=== PATIENT | female | born 1955 | race Caucasian/White ===

== ENCOUNTER 2025-02-18 09:10 | Observation (INO) | payer MEDICARE ==
--- NOTE | 2025-02-05 16:09 | ELECTROCARDIOGRAPH REPORT ---
[facility] Test Date: 2025-02-05 Test Time: 16:07:26 Pat Name: CARLEEN MAYO Department: PRE/OP CARDIOLOGY Room: Gender: F Head Pumper: HENRI : 1955 Requested By: EFRAIN GREENWOOD Order Number: [id number] Reading MD: Dr. Yazmin Joseph Measurements Intervals [place] Rate: 68 P: 38 LA: 140 QRS: 8 QRSD: 99 T: 50 QT: 435 QTc: 463 Interpretive Statements Sinus rhythm Abnormal R-wave progression, early transition Electronically Signed On 02-10-2025 7:00:[address] Yazmin Joseph Please click the below link to view image of tracing.
[2025-02-05 16:33] LABS: MEAN PLATELET VOLUME 8.5 FL (7.4-10.4); PRE OP HEMATOCRIT 40.0 % (35.0-45.0); PRE OP HEMOGLOBIN 13.7 g/dL (12.0-16.0); PRE OP PLATELET COUNT 226 X10'3 (140-440); PRE OP WHITE BLOOD COUNT 5.2 10'3 (4.8-10.8); RED CELL DISTRIBUTION WIDTH 14.1 % (11.5-14.5)
[2025-02-05 16:44] LABS: CREATININE 0.69 MG/DL (0.40-0.90); PRE OP ALT 33 U/L (30-65); PRE OP ANION GAP 6 (8-16); PRE OP AST 27 U/L (10-37); PRE OP BILIRUB, TOTAL 0.6 MG/DL (0.0-1.0); PRE OP GLUCOSE 100 MG/DL (70-104); PRE OP POTASSIUM 4.2 MMOL/L (3.4-5.1); PRE OP SODIUM 139 MMOL/L (135-145); TOTAL CARBON DIOXIDE 28.7 MMOL/L (24-32); eGFR 84 ML/MIN
[2025-02-18] VITALS (36 sets, daily range): BP systolic 95–175; BP diastolic 38–85; PULSE 53–77; RESP 11–19; TEMP 98–98.5; O2SAT 92–99
[~2025-02-18] VITALS: Ht 167.6 cm; Wt 101.9 kg
[2025-02-18] MEDS: ceFAZolin 2gm/dext,iso 50mL 50 ML IV ONE (05:30)
[2025-02-18] MEDS: DOCUMENT DATE & TIME OF BETA-BLOCKER PO ONE (05:30)
[~2025-02-18 09:10] MED LIST: ACET-1025 PO; CALC-1215 PO; CELE-148 PO; MAGN125C PO; METO-384 PO; OMEP20CA16 PO; POTA99CA PO; VALS320T17 PO
[2025-02-18] MEDS: ringers solution, lacted 1,000 ML IV SCH ×2 (09:46→12:15)
[2025-02-18] MEDS: VANCOMYCIN/H2O 1.5g/300mL PB 300 ML IV ONE (09:47)
[2025-02-18] MEDS ORDERED: fentaNYL/PF 50MCG/1 ML 2ML syringe ONE (10:47)
[2025-02-18] MEDS ORDERED: MIDAZolam 1 MG/ML 5ML VIAL ONE (10:47)
[2025-02-18] MEDS ORDERED: propofol inj 20 ML IV ONE ×2 (10:49)
[2025-02-18] MEDS: BUPIVACAINE/MELOXICAM 14 ML VIAL IL ONE (11:58)
[2025-02-18] MEDS ORDERED: hydrALAZINE 20mg/ml inj. IV PRN (12:15)
[2025-02-18] MEDS ORDERED: ondansetron/PF 4mg/2ml inj IV PRN ×2 (12:15→16:10)
[2025-02-18] MEDS ORDERED: labetalol 20mg/4ml (5mg/ml) syringe IV PRN (12:15)
[2025-02-18] MEDS ORDERED: fentaNYL/PF 50MCG/1 ML 2ML syringe IV PRN ×2 (12:15)
[2025-02-18] MEDS ORDERED: ROPIVAcaine 0.5% (5mg/ml) 30ml vial ONE (13:24)
[2025-02-18] MEDS ORDERED: acetaminophen 325mg rectal suppository RC PRN (13:25)
--- NOTE | 2025-02-18 13:52 | OPERATIVE REPORT ---
Operative Report Operative Report OPERATIVE REPORT [facility] [address] [place] [address] Date of service: February 18, 2025 PREOPERATIVE DIAGNOSIS M17..16 Primary osteoarthritis of right knee POSTOPERATIVE DIAGNOSIS M17..16 Primary osteoarthritis of right knee Operation Performed 31127 Total Knee Arthroplasty [place]: [place] 8[address] Computer Assisted Navigation Musculoskeletal - Imageless 87833 Remote therapeutic monitoring; device supply with scheduled recordings every 30 days. Procedure: Computer-assisted, robotically-assisted, right total knee ar throplasty. Surgeon: Dr. Eusebio Craig Antisubmarine Weapons Officer: Chantell Reynoso PA-C Anesthesiologist: Dr. Kendrick Anesthesia: General anesthetic Indications: 69-year-old female who has chronic osteoarthritis of the right knee with severe pain and limitation of activities despite extensive non- operative management. This patient has had extensive conservative treatment of knee joint arthritis, including rest, external joint support, anti-inflammatory medications, physical therapy, and corticosteroid injection. Physical therapy has been provided, along with a home exercise program prior to making the decision to proceed with surgical treatment. This therapeutic intervention did not provide any substantial relief of symptoms or improvement in function. The patient has been utilizing a cane, set of crutches, or walker, for more than 3 months prior to deciding to proceed with surgery. These interventions have not provided sufficient relief of pain to allow improvement in function. The patient has utilized non-steroidal anti-inflammatory medications for relief of pain over an extended period of time (more than 2 months), and has not experienced sufficient improvement in symptoms. Despite these treatments, this patient has continued difficulties with pain and limited function. They are unable to walk long distances, do vigorous activities, sit or sleep comfortably. Total knee replacement is the next reasonable step in terms of treatment. Indications for family readiness support assistant surgeon: A second set of skilled hands with specific orthopedic knowledge of the surgical procedure and orthopedic surgical techniques was necessary to accomplish this operation successfully, and with the least amount of morbidity for the patient. This facilitated operative exposure, manipulation and handling of tissues, placement of any implants, and accomplishment of wound closure. Findings: There was indeed a very severely arthritic knee, with loss of cartilage, exposed bone, and marginal osteophytes. The medial compartment was particularly bad. A 1 degree varus deformity and and an 11 degree flexion contracture were measured preoperatively. Post operative alignment was 1 degree varus, and 1 degree extension. Complications: None Estimated Blood Loss: 150 mL Implants: A Perla Persona CR total knee system was utilized with a size nine right femoral component, a size D right tibial component with a smart stem, and a 32 mm patellar component. A 10 mm medial congruent right tibial insert was utilized. The Viajala robotically assisted total knee arthroplasty system and computer was utilized. Procedure: The risks, benefits, expected results, and possible complications of the planned procedure had been explained to the patient and informed consent obtained. The patient was taken to the operating room and underwent a spinal anesthetic and regional blocks. The patient was placed in the supine position on the operating table, and the right leg was prepped and draped in the usual fashion. A timeout was taken prior to surgery, confirming patient identifica tion, operative side operative site, planned procedure, administration of pre- operative antibiotics, site marking, and presence of all necessary implants and instruments, x-rays and equipment. A standard anterior, slightly lateral approach was performed with a medial parapatellar arthrotomy, and a VMO split. Time was then spent removing excessive synovial tissue and exposing the medial and lateral gutters, as well as moving the anterior sections of the residual menisci. The patella was mobilized to be a ble to be retracted laterally. This gave exposure of the anterior aspect of the knee. Attention was then directed to the patella. An oscillating saw was utilized to make a flat cut in a freehand manner, removing approximately 9 mm of thickness. The patella was then sized and drilled for the appropriate size patella implant. Infrared arrays were then placed on the distal shaft of the femur anteriorly, and the proximal tibia medially. Utilizing the Viajala computer system, the hip, knee, and ankle were landmarked in usual fashion. The initial alignment measurements were then taken confirming the above listed deformity. Surgical planning was then carried out on the computer, confirming alignment of components, sizing, and gap balancing. Appropriate soft tissue releases were performed. The family readiness support assistant surgeon was instrumental in maintaining exposure and tissue management and protecting vital structures. The robot was then utilized to perform all distal femoral cuts. The femur was prepared in 4 degrees of flexion and neutral coronal alignment. The robot was then utilized to cut the proximal tibia in 5 degrees of flexion and neutral cor onal alignment. The computer was then utilized to check longitudinal alignment and soft tissue balance, and this confirmed excellent alignment. Next the dynamic balancing block was utilized to check and adjust soft tissue balancing. Finally, attention was directed to the proximal tibia. The implant was sized and properly rotated, the central drill, and the fin punch performed. Final check of alignment and balancing was then carried out, as well as final removal and cleaning up of soft tissue such as meniscal remnants and osteophytes. A tourniquet was inflated to 300 mmHg after exsanguination of the leg with an Esmarch. Cement was then mixed; 2 batches were utilized, mixed together, for the tibia, the femur and the patella. The cut surface of the tibia was thoroughly lavaged with the pulsating lavage and then dried. The tibia was impacted with the mallet, seating it quite nicely in its proper rotational alignment. Excess cement was removed from around the margins. The femoral cuts were cleaned with a pulsating lavage and then dried with the lap sponges, and the femur was impacted into position with a mallet. The patella was held firmly in place with a clamp. Excess cement was removed around the margins of the components as the cement cured. Pressure was held on the femoral component and tibia by placing a spacer and bringing the leg to full extension and applying axial and hyper extension force. Upon complete hardening of all cement, the knee was inspected and excess cement removed. We lavaged the knee to wash out any debris and checked to make sure we had no impinging cement. The trial spacer was replaced and overall alignment checked with computer, ensuring we had full extension of the knee, and appropriate medial and lateral soft tissue balance, as well as flexion and extension balance. The tourniquet was deflated and hemostasis obtained with electrocautery. The wound was irrigated thoroughly one more time and then dried with lap sponges. The final tibial spacer was impacted and locked into the locking mechanism without difficulty. After final irrigation and suction of excess fluid, the knee was infiltrated with our intraoperative local anaesthetic mixture for postoperative pain control. The tibial and femoral navigation pins and arrays were removed. The tourniquet was then deflated, tourniquet time was 9 minutes. The wound was then closed in layers including retinacular closure, subcutaneous tissue, and skin. A sterile dressing was applied and the patient was returned to the recovery room in satisfactory condition. In the recovery area the remote monitoring station was dispensed to the patient and family. Instructions were given for its usage and color control supervisor once the patient got home. We also confirmed the patient had installed the DISKOVRe mobility software, and we ensured that the patient was enrolled in appropriate software platform from our end. Remote monitoring was initiated at the preoperative appointment and the devices used for remote monitoring implanted and dispensed today. Electronically Signed by: Eusebio Craig MD Doctor, Orthopedic Surgery Signed on: 02/18/2025 01:52 PM EUSEBIO CRAIG MD Feb 18, 2025 13:52
[2025-02-18] MEDS: HYDROmorphone/PF 0.2 MG/ML SYRINGE IV PRN ×2 (15:07→15:43)
[2025-02-18] MEDS: acetaminophen 1,000mg/100ml IV 100 ML IV PRN (15:08)
[2025-02-18] MEDS ORDERED: bisacodyl 10mg suppository rectal RC PRN (16:10)
[2025-02-18] MEDS ORDERED: magnesium hydroxide 30ml (MOM) UD suspension PO PRN (16:10)
[2025-02-18] MEDS ORDERED: PCA WASTE DOCUMENTATION 1 MG ML MC SCH (16:10)
[2025-02-18] MEDS: HYDROcodone/acetaminophen 5mg/325mg tablet PO ONE (16:26)
[2025-02-18] MEDS: metoprolol succinate 25mg (24-HOUR) SR. Tablet PO SCH (20:01)
[2025-02-18] MEDS: ceFAZolin/D5W- 1GM premix 50 ML IV SCH (20:55)
[2025-02-18] MEDS: oxyCODONE IR 5mg (immed. release) tablet PO PRN (21:07)
[2025-02-19] MEDS: vancomycin/NS 1 GM ADD-VANTAGE 250 ML IV SCH (00:56)
[2025-02-19 05:29] VITALS: BP 113/40; PULSE 77; RESP 16; TEMP 98.4; O2SAT 97
[2025-02-19 06:14] LABS: MEAN PLATELET VOLUME 8.8 FL (7.4-10.4); RED CELL DISTRIBUTION WIDTH 13.7 % (11.5-14.5)
[2025-02-19 06:37] LABS: TOTAL CARBON DIOXIDE 27.5 MMOL/L (24-32)
[2025-02-19] MEDS ORDERED: non-formulary drug (Potassium Citrate (Potassium) 1 CAP) PO SCH (08:00)
--- NOTE | 2025-02-19 08:07 | PROGRESS NOTE ---
Progress Note Ortho Ortho Post Op Day #: 1 Follow Up Progress Note Patient had an uneventful overnight. Vital signs stable. Incision clean dry intact. No significant bleeding or oozing from the wound. She has not worked with physical therapy as of yet. She does states she feels a little lightheaded and would like to work with physical therapy prior to being discharged home. We will check on her this afternoon after the ability to work with therapy and see if she is stable for discharge home. ROS ROS No new complaints Exam Exam: Alert and Oreinted x4, Vital signs are stable, In no acute distress, Dressing clean and dry, Wound clean and dry, Distal neurovasc intact Problem/Assessment/Plan Assessment\Plan: Doing Well, Start Physicial Therapy, Cont. Physicial Therapy, Anticipate disch to home Results/Orders Result Diagram: 02/19/25 0525 02/19/25 0524 SANDI WOOD [facility] Feb 19, 2025 08:07
[2025-02-19] MEDS: calcium carbonate/vitamin D3 tablet PO SCH (08:32)
[2025-02-19] MEDS: pantoprazole 40mg Tablet.DR PO SCH (08:32)
[2025-02-19 08:33] VITALS: BP_SYST 113; PULSE 81
[2025-02-19 08:35] VITALS: RESP 16
--- NOTE | 2025-02-19 18:58 | DISCHARGE SUMMARY ---
Discharge Summary Ortho CC ~ Discharge Summary Discharge Date: Feb 19, 2025 *Problems/Diagnosis: (1) S/P total knee arthroplasty Status: Acute Admission Diagnosis: osteoarthritis Discharge Diagnosis\Comment: see above Operations\Procedures see above Consultants: none Complications: none Condition on DC: Stable Discharge Summary: The patient was admitted on the date of surgery. Overnight admission was uneventful. Patient was able to meet discharge criteria with PT. Incision clean, dry and intact, dressing dry. Patient is stable for discharge to home/self care. Total Time Spent on D/C: Up to 30 Minutes Medications Home Meds: Home Medications Active Reported Magnesium Citrate 125 Mg Capsule 2 Cap PO DAILY Potassium (Potassium Citrate) 99 Mg Capsule 1 Cap PO DAILY Calcium + D 600 Mg Tablet (Calcium Carbonate/Vitamin D3) 600 Mg Calcium-10 Mcg (400 Unit) Tablet 1 Each PO DAILY Tylenol Extra Strength (Acetaminophen) 500 Mg Tablet 2 Tab PO BID PRN Metoprolol Succinate 50 Mg Tab.sr.24h 50 Mg PO HS Omeprazole 20 Mg Capsule.dr 1 Cap PO DAILY Celecoxib 100 Mg Capsule 1 Cap PO BID Valsartan 320 Mg Tablet 1 Tab PO DAILY Supervising Physician Supervising Physician: Dr. Eusebio Craig Problem Qualifiers (1) S/P total knee arthroplasty: Qualified Codes: Z96.651 - Presence of right artificial knee joint SANDI WOOD Feb 19, 2025 18:58
== END 2025-02-19 12:36 | disposition home health service (06) ==
LOC: PAS 09:10 → ORTHO 4S 16:13
PROVIDERS: ADMIT Orthopaedic Surgery; ATTEND Orthopaedic Surgery
DX: M17.11 Unilateral primary osteoarthritis, right knee (principal); M25.561 Pain in right knee; M21.161 Varus deformity, not elsewhere classified, right knee; I11.0 Hypertensive heart disease with heart failure; I50.9 Heart failure, unspecified; K21.9 Gastro-esophageal reflux disease without esophagitis; Z79.899 Other long term (current) drug therapy; Z98.890 Other specified postprocedural states
CPT/HCPCS: 20985; 27447; 80051; 80053; 82948; 93005; 96365; 96366; 96367; 96375; 97161; A4215; A7000; C1713; C1776; G0378; J0668; J1171; J3375; J7120; 36415; 85025; 87081; 97110; 97530; 97535; A4615; A6449; A6590; J0131; J0690; J2250; J2704; J2795; J3010; J3373